=== PATIENT | female | born 1940 | race Caucasian/White ===

== ENCOUNTER 2023-03-21 09:01 | Emergency (ER) | payer MEDICARE ==
[2023-03-21] VITALS (8 sets, daily range): BP systolic 152–181; BP diastolic 89–112
[~2023-03-21] VITALS: Ht 157.5 cm; Wt 90.0 kg
[~2023-03-21 09:01] MED LIST: HYZAAR1 TA1 PO; PRILOSEC20 MG/CAP PO
== END 2023-03-21 11:05 | disposition home or self-care (01) ==
LOC: ED 09:01
PROC: 0HQ0XZZ Repair Scalp Skin, External Approach (ICD-10-PCS; principal; 2023-03-21)
DX: S01.01XA Laceration without foreign body of scalp, initial encounter (principal); I10 Essential (primary) hypertension; W01.0XXA Fall on same level from slipping, tripping and stumbling without subsequent striking against object, initial encounter; Y92.009 Unspecified place in unspecified non-institutional (private) residence as the place of occurrence of the external cause

== ENCOUNTER 2023-03-28 09:42 | Emergency (ER) | payer MEDICARE ==
[~2023-03-28] VITALS: Ht 157.5 cm; Wt 92.8 kg
[2023-03-28 10:14] VITALS: BP 139/121
[2023-03-28 10:29] VITALS: BP 143/87
== END 2023-03-28 10:37 | disposition home or self-care (01) ==
LOC: ED 09:42
DX: S01.01XD Laceration without foreign body of scalp, subsequent encounter (principal); I10 Essential (primary) hypertension; W19.XXXD Unspecified fall, subsequent encounter